=== PATIENT | female | born 1980 | race African-American/Black ===

== ENCOUNTER 2019-01-13 02:19 | Emergency (ER) | payer SELFPAY ==
[~2019-01-13] VITALS: Ht 160 cm; Wt 65.8 kg
[2019-01-13 02:23] VITALS: BP 111/66
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
[2019-01-13] MEDS ORDERED: Methocarbamol 750mg tab ORAL ONE (02:30)
[2019-01-13] MEDS ORDERED: Ketorolac 60mg Inj IM ONE (02:30)
[2019-01-13] MEDS ORDERED: IBUPROFEN600 MG ORAL (02:36)
[2019-01-13 02:52] VITALS: BP 111/66
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
== END 2019-01-13 02:52 | disposition home or self-care (01) ==
LOC: EDBD 02:19 → EMR 02:36
DX: M54.9 Dorsalgia, unspecified (principal); Z86.73 Personal history of transient ischemic attack (TIA), and cerebral infarction without residual deficits; Z88.6 Allergy status to analgesic agent; Z88.8 Allergy status to other drugs, medicaments and biological substances; V78.6XXA Passenger on bus injured in noncollision transport accident in traffic accident, initial encounter; Y92.410 Unspecified street and highway as the place of occurrence of the external cause
CPT/HCPCS: 96372; 99283